=== PATIENT | female | born 1990 | race Caucasian/White ===

== ENCOUNTER → 2016-09-03 | Outpatient (CLI) | payer OTHER ==
--- NOTE | 2016-09-03 12:40 | DIAGNOSTIC IMAGING REPORT ---
ULTRASOUND OF THE PELVIS CLINICAL HISTORY: Miscarriage. COMPARISON STUDY: No priors. TECHNIQUE: Real-time, grayscale, and color flow sonography of the pelvis is performed both transabdominally and endovaginally. Images are reviewed in the transverse and longitudinal planes. FINDINGS: Uterus: The gravid uterus is normal in size and echotexture, measuring 9.9 x 5.1 x 7.7 cm. A tiny both in cysts is noted in the cervix. The cervix appears closed. Gestation: There is an intrauterine gestation identified. The mean gestational sac diameter measures 2.06 cm, corresponding to an estimate age of 6 weeks 4 days. A yolk sac is seen and appears thickened. A pole is identified. This measures 0.30 cm, corresponding to estimated age of 5 weeks 6 days. No cardiac activity was identified. A small subchorionic hemorrhage is identified. This measures up to 1.7 cm. There is a small amount of debris within the gestational sac. Ovaries: The right ovary is normal in morphology, measuring 3.0 x 1.5 x 2.2 cm. The left ovary was not seen. Normal Doppler waveforms are shown within the right ovary. Pelvis: There is no free fluid in the cul-de-sac. No concerning adnexal lesion is seen. IMPRESSION: 1. There is a single intrauterine gestation. This has an estimated age of 5 weeks 6 days by crown-rump length measurement. 2. No cardiac activity is identified. Although this could be due to early gestational age, the yolk sac appears thickened and there is a small amount of debris within the gestational sac. These findings suggest missed . Close clinical, laboratory, and sonographic follow-up is recommended. 3. A small subchorionic hemorrhage is noted. 4. The cervix is closed. 5. The right ovary is normal in appearance. The left ovary was not seen. Electronically signed by: Keyon Dale M.D. 09/03/2016 12:38 PM Dictated Date/Time: 09/03/2016 12:33 PM
== END | disposition home or self-care (01) ==
LOC: C.ULTR 11:28
PROVIDERS: ATTEND Obstetrics & Gynecology
DX: O02.1 Missed abortion (principal)